=== PATIENT | female | born 1995 | race African-American/Black ===

== ENCOUNTER 2018-04-15 04:32 | Emergency (ER) | payer BC, OTHER ==
[~2018-04-15] VITALS: Ht 165.1 cm; Wt 81.7 kg
[2018-04-15 04:49] VITALS: BP 115/56
[2018-04-15] MEDS ORDERED: NOHOMEMEDICATIONS (04:59)
[2018-04-15] MEDS ORDERED: PEPCID20 MG PO (05:08)
[2018-04-15] MEDS ORDERED: PREDNISONE 20 M20 MG PO (05:08)
== END 2018-04-15 05:27 | disposition home or self-care (01) ==
LOC: ER 04:32
DX: S40.261A Insect bite (nonvenomous) of right shoulder, initial encounter (principal); W57.XXXA Bitten or stung by nonvenomous insect and other nonvenomous arthropods, initial encounter; Y93.89 Activity, other specified; Y92.89 Other specified places as the place of occurrence of the external cause; Y99.8 Other external cause status